=== PATIENT | female | born 1985 | race African-American/Black ===

== ENCOUNTER 2024-04-18 22:12 | Emergency (ER) | payer MEDICAID ==
[~2024-04-18] VITALS: Ht 157.5 cm; Wt 70.0 kg
[2024-04-18 23:31] LABS: BASOPHILS % 0.7 % (0.0-2.0); EOSINOPHILS % 5.8 % (0.0-5.0); HEMATOCRIT. 39.5 % (36.0-48.0); HEMOGLOBIN. 13.1 g/dL (12.0-16.0); LYMPHOCYTES % 31.6 % (20.0-50.0); MEAN CORPUSCULAR HEMOGLOBIN 26.6 pg (28.0-32.0); MEAN CORPUSCULAR HGB CONC 33.1 g/dL (31.0-37.0); MEAN CORPUSCULAR VOLUME 80.2 fL (81.0-99.0); MEAN PLATELET VOLUME 8.8 fl (7.4-10.4); MONOCYTES % 6.2 % (2.0-8.0); NEUTROPHILS % 55.7 % (40.0-76.0); PLATELET 340 x1000/uL (130-400); RED BLOOD CELL COUNT 4.93 mill/uL (4.2-5.4); RED CELL DISTRIBUTION WIDTH 12.7 % (11.6-14.6)
[2024-04-18 23:36] VITALS: PULSE 92; RESP 16; O2SAT 100
[2024-04-18 23:36] LABS: CHLORIDE 108 mEq/L (98-107); POTASSIUM 3.8 mEq/L (3.5-5.1); SODIUM 141 mEq/L (136-145)
[2024-04-18] MEDS: ALBUTEROL (0.083%) 2.5MG/3ML NEB HHN ONE (23:36)
[2024-04-18] MEDS: IPRATROPIUM/ALBUTEROL 0.5-3(2.5)MG/3ML NEB HHN ONE (23:36)
[2024-04-18 23:37] LABS: CALCIUM 9.4 mg/dL (8.7-10.4); CARBON DIOXIDE 27 mEq/L (21-32)
[2024-04-18 23:42] LABS: CREATININE 0.7 mg/dL (0.6-1.0); GLUCOSE 104 mg/dL (70-105); UREA NITROGEN BLOOD 12 mg/dL (9-23)
[2024-04-18] MEDS: DEXAMETHASONE 4MG/ML 1ML VIAL IM ONE (23:43)
[2024-04-18 23:50] LABS: TROPONIN I HIGH SENSITIVITY < 4 ng/L (3.0-34)
[2024-04-19] MEDS ORDERED: ALBU6.7H15 INH (01:18)
[2024-04-19] MEDS ORDERED: BUDE6.9H INH (01:18)
[2024-04-19] MEDS ORDERED: P50 MT (01:18)
[2024-04-19 01:33] VITALS: BP 106/60; PULSE 90; RESP 16; TEMP 36.94740; O2SAT 100
== END 2024-04-19 01:36 | disposition home or self-care (01) ==
LOC: ER 22:12
DX: J45.901 Unspecified asthma with (acute) exacerbation (principal); Z98.890 Other specified postprocedural states
CPT/HCPCS: 80048; 85025; 84484; 36415; 94644; 96372; 99291; J1100; Z7610 ×5; 94640